=== PATIENT | female | born 1985 | race Caucasian/White ===

== ENCOUNTER 2021-01-14 18:56 | Emergency (ER) | payer BC, MEDICAID, SELFPAY ==
[2021-01-14 19:34] VITALS: BP 107/66; PULSE 91; RESP 18; TEMP 36.6; O2SAT 97; BMI 25.6
[2021-01-14 20:04] LABS: UPreg QC Valid YES; Urine Pregnancy NEGATIVE (NEGATIVE)
[2021-01-14 20:28] LABS: Appearance Urine CLOUDY; UACC Culture Trigger YES
[2021-01-14 20:34] LABS: Glucose Urine UA 250 MG/DL (NEG); Specific Gravity - Urine >= 1.030 (1.005-1.025); Urine Blood 2+ (NEG); Urine Ketones >=80 MG/DL (NEG); Urine Protein 3+ MG/DL (NEG-TRACE)
[2021-01-14 20:35] LABS: Color Urine ORANGE; Leukocyte Esterase Urine 2+ (NEG); Nitrite Urine POS (NEG)
[2021-01-14 20:38] LABS: WBC Urine 50-75 /HPF (0-4)
[2021-01-14 20:39] LABS: Bacteria Urine 1+ /LPF; Mucus Urine TRACE /LPF; Squamous Epithelial Cell Urine TRACE /LPF
--- NOTE | 2021-01-14 21:00 | ED.FEMALEGU ---
HPI - Female Genitourinary General Chief complaint: Urogenital-Female Stated complaint: ?uti and having abd pain Time Seen by Provider: 01/14/21 20:59 Source: patient Mode of arrival: ambulatory Limitations: no limitations History of Present Illness MD elicited complaint: dysuria and UTI Onset (ago): day(s) (2) Location of symptoms: suprapubic Severity: moderate Quality of pain: burning Consistency: intermittent Urinary symptoms: Dysuria, Urgency and Frequency Exacerbating factors: urination Relieving factors: none Associated symptoms: abdominal pain Treatment prior to arrival: none Sexual activity: Yes Related Data Previous Rx's Medication Instructions Recorded nitrofurantoin 100 mg PO BID 7 Days #14 cap 01/14/21 monohydrate/macrocrystals 100 mg capsule (Macrobid) ondansetron 4 mg disintegrating 4 mg PO Q8H PRN #20 tab 01/14/21 tablet phenazopyridine 100 mg tablet 100 mg PO TID PRN #6 tab 01/14/21 (Pyridium) Allergies Allergy/AdvReac Type Severity Reaction Status Date / Time nut - unspecified [NUTS] Allergy Unknown HIVES Verified 01/14/21 19:34 shellfish derived Allergy Unknown HIVES Verified 01/14/21 19:34 [SHELLFISH DERIVED] Almonds Allergy Unknown Hives Uncoded 01/14/21 19:34 Fresh fruit Allergy Unknown Angioedema Uncoded 01/14/21 19:34 FRUIT Allergy Unknown ITCHING Uncoded 01/14/21 19:34 shell fish Allergy Unknown Angioedema Uncoded 01/14/21 19:34 Review of Systems Review of Systems: Constitutional : No Weight loss, No Fever, No Chills ENT/Mouth : No sore throat, No Rhinorrhea Eyes: No Swelling, No Redness Cardiovascular : No Chest Pain, No SOB, NoEdema Respiratory : No Cough, No Sputum, No Wheezing Gastrointestinal : no Nausea, no Vomiting, no Diarrhea, positive abdominal Pain, No Hematochezia, No Melena Genitourinary : pos Dysuria, pos Urinary Frequency, No Hematuria, No Urgency Musculoskeletal : No joint pain, No Myalgias, No Joint Swelling Skin : No Skin Lesions, No rash Neuro : No Weakness, No Numbness, No Dizziness, No Headache PMFSH Past Medical History Attestation statement: The following information was validated with the patient. Medical History UTI (urinary tract infection) Social History Social History (Updated 01/14/21 @ 21:00 by Criselda Jarrett DO) Patient Tobacco Use Status: Never used Tobacco Patient : No Physical Exam Vital Signs: Vital Signs: Last Vital Signs Temp 98 F 01/14/21 19:34 Pulse 91 01/14/21 19:34 Resp 18 01/14/21 19:34 BP 107/66 01/14/21 19:34 Pulse Ox 97 01/14/21 19:34 Body Mass Index 25.6 Appearance: Alert. Oriented X3. No acute distress. Eyes: Pupils equal, round and reactive to light. ENT: Pharynx normal. Neck: Normal inspection. Neck supple. CVS: Normal heart rate and rhythm. Pulses normal. Respiratory: No respiratory distress. Breath sounds normal. Abdomen: Soft and mild suprapubic ttp no rebound or guarding Back: no CVA ttp Skin: Skin warm and dry. Normal skin color. Normal skin turgor. Extremities: No lower extremity edema. No calf ttp Neuro: Oriented X 3. No motor deficit. No sensory deficit. MDM - Female Genitourinary MDM Narrative Medical decision making narrative: 35 yo female with hx of UTI - has dysuria and suprapubic discomfort for 2 day, no flank pain or CVA ttp, no fevers/vomiting no clinical signs of pyelo - at this time treatment for UTI with precautions to return Lab Data Labs: Lab Results 01/14/21 01/14/21 Range/Units 19:46 19:46 Urine Color ORANGE Urine Appearance CLOUDY Urine pH 5.0 (5.0-8.0) Ur Specific [place] >= 1.030 H (1.005-1.025) Urine Protein 3+ H (NEG-TRACE) MG/DL Urine Glucose (UA) 250 H (NEG) MG/DL Urine Ketones >=80 (NEG) MG/DL Urine Blood 2+ H (NEG) Urine Nitrite POS H (NEG) Ur Leukocyte Esterase 2+ H (NEG) Urine RBC 10-14 H (0) /HPF Urine WBC 50-75 H (0-4) /HPF Ur Squamous Epith Cells TRACE /LPF Urine Bacteria 1+ /LPF Urine Mucus TRACE /LPF Urine Test NEGATIVE (NEGATIVE) Discharge Plan Discharge Clinical Impression: Urinary tract infection Patient Disposition: Home, Self-Care Instructions: Urinary Tract Infection in Women (ED) Additional Instructions: return to ED for any worsening symptoms or concerns Prescriptions: New nitrofurantoin monohyd/m-cryst [Macrobid] 100 mg capsule 100 mg PO BID 7 Days Qty: 14 RF: 0 ondansetron 4 mg tablet,disintegrating 4 mg PO Q8H PRN (Reason: nausea and vomiting) Qty: 20 RF: 0 phenazopyridine [Pyridium] 100 mg tablet 100 mg PO TID PRN (Reason: pain) Qty: 6 RF: 0 Stand Alone Forms: Work/School Release
[2021-01-14] MEDS: Nitrofurantoin Monohyd/M-Cryst 100 MG CAPSULE PO (21:20)
== END 2021-01-14 21:23 | disposition home or self-care (01) ==
LOC: HO.ED 21:21
PROVIDERS: Emergency Provider Emergency Medicine; PCP Internal Medicine Sports Medicine
DX: N39.0 Urinary tract infection, site not specified (principal); R30.0 Dysuria; Z79.899 Other long term (current) drug therapy
CPT/HCPCS: 81001; 81003; 81025; 87086; 87088; 87186; 99283